=== PATIENT | male | born 2000 | race Caucasian/White ===

== ENCOUNTER 2023-10-19 07:07 | Outpatient (CLI) | payer BC | END 2023-10-19 07:08 | disposition home or self-care (01) | LOC: CSHCT 07:07 | PROVIDERS: ATTEND Internal Medicine | DX: K76.9 Liver disease, unspecified (principal); R19.4 Change in bowel habit; F10.10 Alcohol abuse, uncomplicated | CPT/HCPCS: 74170 ==